=== PATIENT | male | born 1930 ===

== ENCOUNTER 2017-09-26 18:11 | Emergency (ER) | payer MEDICARE ==
--- NOTE | 2017-09-26 18:34 | Emergency Department Report ---
ED Syncope HPI - General Chief Complaint: Syncope Stated Complaint: SYNCOPE Time Seen by Provider: 09/26/17 18:32 Source: patient, EMS Exam Limitations: no limitations - History of Present Illness Initial Comments: Patient passed out [employer] and he was transported to the emergency room by EMS. He currently denies any symptoms. He repeatedly said he feels fine and is not having pain anywhere. Precipitating Factors: Positive: none Context: standing Loss of Consciousness: brief (seconds) Current Symptoms: back to normal - Related Data Allergies/Adverse Reactions: Allergies chocolate flavor Allergy (Verified 09/26/17 18:34) Hives ED Review of Systems ROS: Stated complaint: SYNCOPE Other details as noted in HPI Comment: All other systems reviewed and negative Constitutional: denies: chills, fever Eyes: vision change ENT: denies: ear pain Respiratory: denies: cough, shortness of breath Cardiovascular: denies: chest pain, palpitations Endocrine: no symptoms reported Gastrointestinal: denies: abdominal pain, nausea, vomiting, diarrhea Genitourinary: denies: dysuria, frequency, hematuria Musculoskeletal: denies: back pain, joint swelling, arthralgia, myalgia Skin: denies: rash, lesions Neurological: denies: headache, weakness, numbness, paresthesias Psychiatric: denies: anxiety, depression Hematological/Lymphatic: denies: easy bleeding, easy bruising ED Physical Exam - General Limitations: No Limitations General appearance: alert, in no apparent distress - Head Head exam: Present: atraumatic, normocephalic, normal inspection - Eye Eye exam: Present: normal appearance, PERRL Pupils: Present: normal accommodation - ENT ENT exam: Present: normal exam, normal orophraynx, mucous membranes dry - Neck Neck exam: Present: normal inspection, full ROM. Absent: tenderness - Respiratory Respiratory exam: Present: normal lung sounds bilaterally. Absent: wheezes, rhonchi - Cardiovascular Cardiovascular Exam: Present: regular rate, normal rhythm, normal heart sounds - GI/Abdominal GI/Abdominal exam: Present: soft, normal bowel sounds. Absent: distended, tenderness, guarding, rebound - Extremities Exam Extremities exam: Present: normal inspection, full ROM, normal capillary refill. Absent: tenderness - Back Exam Back exam: Present: normal inspection, full ROM - Neurological Exam Neurological exam: Present: alert, oriented X3, CN II-XII intact - Psychiatric Psychiatric exam: Present: normal affect, normal mood - Skin Skin exam: Present: warm, dry, intact, normal color ED Course Vital Signs 09/26/17 09/26/17 18:34 19:00 Temperature 98.0 F 98 F Pulse Rate 71 76 Respiratory 18 18 Rate Blood Pressure 148/87 148/87 [Left] O2 Sat by Pulse 99 99 Oximetry - Reevaluation(s) Reevaluation #1: 09/26/17 21:14 I spoke to the patient regarding drinking alcohol. I counseled him to quit drinking alcohol. I also spoke with the family members who are at his beside. Patient will be taken home by his daughters. He promised to stop drinking alcohol. 09/26/17 21:16 ED Medical Decision Making - Lab Data Result diagrams: 09/26/17 18:45 09/26/17 18:44 - EKG Data -: EKG Interpreted by Me EKG shows normal: sinus rhythm, intervals (First degree AV block.) Rate: normal (68) - EKG Data When compared to previous EKG there are: previous EKG unavailable Interpretation: nonspecific ST-T wave andres, LVH - Radiology Data Radiology results: report reviewed, image reviewed - Medical Decision Making Syncope. Dehydration. Critical care attestation.: If time is entered above; I have spent that time in minutes in the direct care of this critically ill patient, excluding procedure time. ED Disposition Clinical Impression: Hypoglycemia Syncope Qualifiers: Syncope type: unspecified Qualified Code(s): R55 - Syncope and collapse Alcohol intoxication Qualifiers: Complication of substance-induced condition: uncomplicated Qualified Code(s): F10.920 - Alcohol use, unspecified with intoxication, uncomplicated Disposition: DC-01 TO HOME OR SELFCARE Is pt being admited?: No Does the pt Need Aspirin: No Condition: Stable Instructions: Syncope (ED), Alcohol Intoxication (ED), Abuse of Alcohol (ED) Additional Instructions: Follow up with your primary doctor on Wednesday. Please STOP drinking alcohol. Return to the ED if your condition worsens. Referrals: PRIMARY CARE, [Primary Care Provider] - 3-5 Days Time of Disposition: 21:14
[2017-09-26] MEDS ORDERED: NACL 0.9% 1000 ML 1,000 ML IV ONE (18:37)
[2017-09-26 18:54] LABS: Hematocrit 36.5 % (35.5-45.6); Hemoglobin 11.8 gm/dl (11.8-15.2); Mean Corpuscular HGB Conc 33 % (32-34); Mean Corpuscular Hemoglobin 33 pg (28-32); Mean Corpuscular Volume 100 fl (84-94); Platelet Count 183 K/mm3 (140-440); Red Blood Count 3.63 M/mm3 (3.65-5.03)
[2017-09-26 19:06] LABS: INR 1.13 (0.87-1.13)
[2017-09-26 19:07] LABS: Partial Thromboplastin Time 28.9 Sec. (24.2-36.6)
[2017-09-26 19:20] LABS: Alanine Aminotransferase 12 units/L (7-56); Albumin 3.5 g/dL (3.9-5); BUN/Creatinine Ratio 25; Blood Urea Nitrogen 15 mg/dL (9-20); Calcium 7.9 mg/dL (8.4-10.2); Hemolysis Index 30
--- NOTE | 2017-09-26 19:22 | Cat Scan Report ---
FINAL REPORT EXAM: CT HEAD/BRAIN WO CON HISTORY: Syncope TECHNIQUE: Standard unenhanced CT of the head at 5.0 millimeter axial increments. PRIORS: None. FINDINGS: The ventricular system is normal in size and configuration. There is moderate cerebral atrophy. Low-density in the periventricular white matter is consistent with small vessel ischemic changes. There is no evidence for mass lesion, mass effect, midline shift, acute intracranial hemorrhage, or acute ischemia/ infarction. No evidence for acute skull fracture is seen. No abnormality in the overlying scalp soft tissues is seen. Visualized paranasal sinuses demonstrates mucosal thickening in the right maxillary, left sphenoid, and ethmoid sinuses. IMPRESSION: Atrophy and small vessel ischemic changes. No acute intracranial process noted.
--- NOTE | 2017-09-26 19:46 | XRay Report ---
FINAL REPORT EXAM: XR CHEST 1V AP HISTORY: Syncope TECHNIQUE: AP portable view of the chest PRIORS: None. FINDINGS: Lines, tubes, and devices: N/A Lungs and pleura: Trachea is normal in position. Lungs are clear of infiltrate, pleural effusion, vascular congestion, or pneumothorax. Cardiomediastinal silhouette: Cardiac and mediastinal silhouettes are unremarkable. Other: Bony structures are intact. IMPRESSION: No acute cardiopulmonary process seen.
[2017-09-26 19:50] LABS: Anisocytosis 1+; Total Cells Counted 100
[2017-09-26 19:51] LABS: Platelet Estimate Consistent w Auto
[2017-09-26] MEDS ORDERED: D50W (25GM) Syringe IV ONE (20:10)
[2017-09-26 20:22] LABS: Amphetamine Screen,Urine PRESUMPTIVE NEGATIVE; Benzodiazepines Screen,Urine PRESUMPTIVE NEGATIVE; Cannabinoid Screen,Urine PRESUMPTIVE NEGATIVE; Cocaine Screen,Urine PRESUMPTIVE NEGATIVE; Methadone Screen,Urine PRESUMPTIVE NEGATIVE; Opiate Screen,Urine PRESUMPTIVE NEGATIVE
[2017-09-26 20:38] LABS: Bilirubin,Urine NEG (Negative); Blood,Urine SM (Negative); Color,Urine Straw (Yellow); Protein,Urine <15 mg/dL mg/dL (Negative); Urobilinogen,Urine < 2.0 mg/dL (<2.0); WBC,Urine < 1.0 /HPF (0.0-6.0)
[2017-09-26 21:20] VITALS: BP 153/92
== END 2017-09-26 21:31 | disposition home or self-care (01) ==
LOC: ED 18:11
DX: E16.2 Hypoglycemia, unspecified (principal); R55 Syncope and collapse; F10.129 Alcohol abuse with intoxication, unspecified
CPT/HCPCS: 36415; 70450; 71045; 80053; 80307; 81001; 82550; 82962; 84484; 85007; 85025; 85610; 85730; 93005; 93010; 96361; 96374; 99285; G0480; J7030; 80320